=== PATIENT | female | born 1955 | race Caucasian/White ===

== ENCOUNTER → 2016-07-25 | Day surgery (SDC) | payer OTHER ==
[~2016-07-25] MED LIST: ASPIRIN PO; LIPITOR PO; LISINOPRIL10 MG PO; METFORMIN HCL500 M1 PO; METFORMIN PO; MOTION SICKNESS PO; PHENERGAN PO; PREMARIN PO; VICODIN 5/500 T1 TAB PO
--- NOTE | ~2016-07-25 | OR ---
Unit #: [id number] #: [id number] Patient: KHAI WELCH [id number] [facility]. [address] [address] [id number] O MR#: [id number] NAME: KHAI WELCH ROOM: Date of Procedure: 07/25/2016 Admission Date: 07/25/2016 Surgeon: Manuelito Leblanc Jr., M.D. : 1955 Attending Physician: Manuelito Leblanc Jr., M.D. Primary Care Physician: Hiro Shaw M.D. OPERATIVE REPORT INDICATION FOR PROCEDURE The patient is a 61-year-old white female, who recently presented to the office complaining of a nodular mass of the frontal scalp. On examination, it was felt she had a Pilar cyst approximately 2.5 to 3 cm in diameter. She was brought in this time for excision of this. She understands the procedure including the risks, including that of infection, poor healing, and recurrence and consents. 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 ANESTHESIA 1% Xylocaine with epinephrine locally. PROCEDURE PERFORMED Excision of skin of the frontal scalp. DESCRIPTION OF PROCEDURE The patient was positioned in supine position. After being prepped and draped in routine fashion, she was anesthetized locally in the area of the nodule of the scalp with 1% Xylocaine with epinephrine. An elliptical incision was made around the nodule being totally excised from the surrounding tissue and down to the periosteum. There was an obvious exostosis or humped in the bone of the skull right beneath the area of the tissue removed. After hemostasis achieved with Bovie cautery, skin edges were approximated with interrupted 2-0 nylon sutures. The specimen was sent to pathology. Ointment was applied externally. Estimated blood loss minimal. No drains used. No fluids given and no complications. The patient was taken to the discharge area with stable vital signs for discharge in satisfactory condition. Dictated by... Manuelito Leblanc Jr., M.D. JMB/liudmila Unit #: [id number] #: [id number] Patient: KHAI WELCH Patsy TD: 07/25/2016 23:57 JOB #: [id number] OPERATIVE REPORT Page 1 of 1 X Manuelito Leblanc MD PROCEDURE OPERATIVE NOTE
== END | disposition home or self-care (01) ==
LOC: CSUR 07:30
DX: L72.11 Pilar cyst (principal); I10 Essential (primary) hypertension; E11.9 Type 2 diabetes mellitus without complications; Z90.710 Acquired absence of both cervix and uterus; Z79.82 Long term (current) use of aspirin; Z79.84 Long term (current) use of oral hypoglycemic drugs; Z87.891 Personal history of nicotine dependence
CPT/HCPCS: 82947; 88305